=== PATIENT | female | born 1930 | race Caucasian/White ===

== ENCOUNTER → 2016-06-30 | Outpatient (CLI) | payer MEDICARE, OTHER ==
[~2016-06-30] MED LIST: AMLO-147 PO; FURO20TA3 PO; VALS160T20 PO
--- NOTE | 2016-07-01 14:10 | RADRPT ---
PROCEDURE: US left lower extremity arteries. CLINICAL INDICATION: Left leg pain. History of arterial catheterization with stent placement and question of pseudoaneurysm. TECHNIQUE: Multiple longitudinal and transverse images of the left lower extremity arteries were o btained with jones scale and color Doppler imaging. COMPARISON: No prior studies are available for comparison. FINDINGS: Location PXD133 cm/sec [id number] cm/sec UHPG307 cm/sec DSFA60 cm/sec POP68 cm/sec PTA33 cm/sec DPA51 cm/sec There is normal triphasic or biphasic flow throughout. There is no significant stenosis or occlusio n. There is no aneurysm or pseudoaneurysm. IMPRESSION: 1. Normal left lower extremity arterial Doppler. 2. No pseudoaneurysm. RPTAT: QQ .Anderson Major MD, Date Time Electronically viewed and signed by .Anderson Major MD, on 07/01/2016 14:10 .R/
== END | disposition home or self-care (01) ==
LOC: VAS 14:29
PROVIDERS: ATTEND Student in an Organized Health Care Education/Training Program
DX: M79.662 Pain in left lower leg (principal)
CPT/HCPCS: 93926

== ENCOUNTER → 2017-12-30 | Outpatient (CLI) | END | disposition home or self-care (01) ==